=== PATIENT | female | born 1970 | race Caucasian/White ===

== ENCOUNTER 2020-12-12 13:31 | Inpatient (IN) | payer SELFPAY ==
[~2020-12-12] VITALS: Ht 152.4 cm; Wt 63.9 kg
[2020-12-12 14:10] LABS: ALBUMIN 3.3 gm/dL (3.5-5.0); BILIRUBIN,TOTAL 0.5 mg/dL (0.0-1.0); CREATININE, serum 4.59 (0.52-1.25); POTASSIUM 3.5 mmol/L (3.4-5.0)
[2020-12-12 14:13] LABS: BASO % 0.3 % (0.0-2.0); EOS % 0.1 % (0-4.0); GRAN # 7.8 (1.4-6.5); GRAN % 86.9 % (42.2-75.2); LYMPH # 0.6 (1.2-3.4); LYMPH % 6.9 % (20.0-51.0); MEAN CELL VOLUME 88 fl (80.0-100.0); MEAN CORPUSCULAR HEMOGLOBIN 32 pg (27.0-31.0); MEAN CORPUSCULAR HGB CONC 36 g/dl (33.0-37.0); MEAN PLATELET VOLUME 9.4 fl (7.4-10.4); MONO # 0.5 (0.1-0.6); MONO % 5.1 % (1.7-9.3); PLATELET COUNT 265 K/mm3 (130-400); RED BLOOD COUNT 3.17 M/mm3 (4.10-5.30); REDCELL DISTRIBUTION WIDTH-CV 12.1 % (11.5-14.5)
[2020-12-12 14:18] LABS: COLLECTION METHOD CLEAN CATCH
[2020-12-12 14:28] LABS: CALCIUM 5.5 mg/dL (8.4-10.2); TROPONIN-I 0.052 ng/mL (0.000-0.035)
[2020-12-12 14:28] LABS: BUDDING YEAST Present /hpf; MUCOUS Present /lpf; PH 5 (5-8); URINE APPEARANCE Cloudy; URINE BACTERIA Rare /hpf; URINE BILIRUBIN Negative (NEGATIVE); URINE BLOOD 1+ (NEGATIVE); URINE COLOR Yellow; URINE GLUCOSE 1+ (NEGATIVE); URINE KETONE Negative (NEGATIVE); URINE LEUKOCYTE ESTERASE Trace (NEGATIVE); URINE NITRATE Negative (NEGATIVE); URINE PROTEIN(semi-quant) 2+ (NEGATIVE); URINE UROBILINOGEN Negative (NEGATIVE)
[2020-12-12 14:47] LABS: PHOSPHOROUS 5.9 mg/dL (2.5-4.5)
[2020-12-12 14:50] LABS: MAGNESIUM 0.7 mg/dL (1.6-2.3)
[2020-12-12 15:15] LABS: TSH w REFLEX 1.78 uIU/mL (0.465-4.680)
--- NOTE | 2020-12-12 16:45 | NUR ---
Pt arrived to medical unit room 310 from ED at this time. Report received from ZORAN Jaramillo. Oriented pt to room, admission assessments and med rec completed. notified of pt's arrival. Magnesium infusion completed and left FA IV saline locked. Denies other needs at this time. Continuing to monitor.
[2020-12-12] MEDS ORDERED: NEXIUM 20MG20 MG PO (16:52)
[2020-12-12 17:34] VITALS: BP 208/93; PULSE 79; TEMP 98.1
[2020-12-12 19:12] VITALS: BP 175/77; PULSE 82; TEMP 98
--- NOTE | 2020-12-12 20:00 | NUR ---
Assessment complete. Patient is awake, sitting in chair. 2+ edema is noted on bilateral upper and lower extremities; generalized edema is also noted. She is alert and oriented with no complaints of pain. Lung sounds are diminished in bases with fine crackles. Heart sounds normal/regular. She noices concern of her condition and seems unsure of dialysis; Dr. Salas has been in to see patient. Tele monitor on, call light in reach. Will continue to monitor.
[2020-12-12 21:11] LABS: IRON,SERUM 59 ug/dL (35-150)
[2020-12-12 21:20] LABS: TOTAL IRON BINDING CAPACITY 208 ug/dL (265-497)
[2020-12-12 23:26] VITALS: BP 128/73; PULSE 93; TEMP 97.3
[2020-12-13] VITALS (11 sets, daily range): BP systolic 95–176; BP diastolic 44–81; PULSE 49–67; TEMP 97.4–98.1
[2020-12-13 06:42] LABS: BASO % 0.4 % (0.0-2.0); EOS % 0.6 % (0-4.0); GRAN # 4.3 (1.4-6.5); LYMPH # 0.4 (1.2-3.4); LYMPH % 8.2 % (20.0-51.0); MEAN CELL VOLUME 89 fl (80.0-100.0); MEAN CORPUSCULAR HGB CONC 35 g/dl (33.0-37.0); MEAN PLATELET VOLUME 9.5 fl (7.4-10.4); MONO # 0.4 (0.1-0.6); MONO % 7.2 % (1.7-9.3); PLATELET COUNT 197 K/mm3 (130-400); REDCELL DISTRIBUTION WIDTH-CV 12.2 % (11.5-14.5)
[2020-12-13 06:45] LABS: HEMOGLOBIN 8.5 g/dl (12.5-16.0); MEAN CORPUSCULAR HEMOGLOBIN 31 pg (27.0-31.0)
[2020-12-13 06:56] LABS: ALBUMIN 2.5 gm/dL (3.5-5.0); CREATININE, serum 4.72 (0.52-1.25); PHOSPHOROUS 5.9 mg/dL (2.5-4.5); POTASSIUM 3.5 mmol/L (3.4-5.0)
[2020-12-13 06:58] LABS: CALCIUM 5.4 mg/dL (8.4-10.2)
--- NOTE | 2020-12-13 09:53 | NUR ---
Assessment complete. Patient sitting up in recliner eating breakfast at this time. No complaints of pain or discomfort were expressed at this time. PAtient ambulated to the restroom via standby assist and did well. She is aware to call prior to getting up or moving around the room, she agreed. Patient chewed some of her pills, consciously by choice, I assured she did not chew metoprolol. No other needs were expressed from the patient at this time. Call light is in reach.
--- NOTE | 2020-12-13 11:56 | NUR ---
First visit from the director of construction. Patient was sleeping so director of construction prayed for patient outside of their door.
--- NOTE | 2020-12-13 18:21 | NUR ---
Patient has had a good day. no complaints of pain or discomfort were expressed throguh the day. Patient has spent most of the day in the recliner with no issues. PRN blood pressure medication given as needed. Patient has been calling appropriately to use the restroom and to ambulate in room. Continuing to monitor. Call light is in reach.
--- NOTE | 2020-12-13 20:00 | NUR ---
Assessment complete. Patient is alert and oriented with no tremors. She has no complaints of pain. Edema is present in bilat upper and lower extremities; 2+ pitting in lower extremities and 2+ pitting in left arm/hand, which is significantly more edematous that the right. A large bump in noted on the patient's left back; it is about the size of an entire lung. PARRIS Tidwell is notified and comes to assess patient. Patient is in no acute distress and has no complaints of breathing issues; Lung sounds are audible. Patient does state this mass/bump was not there previously and may have occurred after her VQ Scan. She states it is tender at times, moreso if she lays on it. Bed alarm on and call light in reach. Will continue to monitor.
--- NOTE | 2020-12-13 23:25 | NUR ---
Patient's BP 99/44 and HR 49 at this time. Patient is resting in bed. PARRIS Tidwell notified and comes to assess patient. Patient has been receiving new blood pressure medications. Will continue to closely monitor.
[2020-12-14] VITALS (11 sets, daily range): BP systolic 128–172; BP diastolic 55–74; PULSE 52–92; TEMP 97.2–98.3
[2020-12-14 07:32] LABS: BASO % 0.2 % (0.0-2.0); EOS % 0.4 % (0-4.0); GRAN # 4.3 (1.4-6.5); GRAN % 84.6 % (42.2-75.2); LYMPH # 0.4 (1.2-3.4); LYMPH % 7.7 % (20.0-51.0); MEAN CELL VOLUME 90 fl (80.0-100.0); MEAN CORPUSCULAR HGB CONC 34 g/dl (33.0-37.0); MEAN PLATELET VOLUME 9.8 fl (7.4-10.4); MONO # 0.3 (0.1-0.6); MONO % 6.5 % (1.7-9.3); PLATELET COUNT 202 K/mm3 (130-400); RED BLOOD COUNT 2.77 M/mm3 (4.10-5.30); REDCELL DISTRIBUTION WIDTH-CV 12.2 % (11.5-14.5)
[2020-12-14 07:38] LABS: ALBUMIN 2.6 gm/dL (3.5-5.0); CREATININE, serum 4.84 (0.52-1.25); MAGNESIUM 1.4 mg/dL (1.6-2.3); PHOSPHOROUS 5.8 mg/dL (2.5-4.5); POTASSIUM 3.5 mmol/L (3.4-5.0)
[2020-12-14 07:40] LABS: HEMATOCRIT 24.9 % (37.0-47.0); HEMOGLOBIN 8.4 g/dl (12.5-16.0); MEAN CORPUSCULAR HEMOGLOBIN 30 pg (27.0-31.0)
--- NOTE | 2020-12-14 09:23 | NUR ---
Assessment complete. Patient ulysses kirby in recliner eating breakfast at this time. She is aware of her POC after speaking with KENNETH Singh. No complaints of pain or discomfort were expressed. Patient is eager to go home. IV site remains CD&I, minimal leakage but flushes just fine. Patient continues to call for assistance to and from restroom appropriately. Continuing to monitor. Call light is in reach.
--- NOTE | 2020-12-14 09:41 | NUR ---
Frit Mixer met with patient to discuss discharge planning. 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 Patient does not have a primary care physician and declines to have one established for her. Patient obtains any needed medications from [facility] in [place] and does not use any DME. Patient is independent with ADLS and plans to return home upon discharge. Patient does not have Advance Directives and reports that her next of kin is her brother, Kei (ph#[phone]). Patient is not interested in establishing [facility]- at this time. SW addressed patient's alcohol use, which is reported to be about six beers per day. Patient feels this has been blown out of proportion but does state that she was drinking too much. Patient plans to cut back on drinking. SW offered resources to patient such as AA, but patient declines. Patient states she has friends in AA that can assist her as needed.
--- NOTE | 2020-12-14 16:02 | NUR ---
Patient has had a good day. She has spent most of the day in the recliner with no issues. Patient has had no complaints of pain and was excited to see a decrease in her swelling to her left hand. Her brother was in to visit with her for a while. PRN hydralazine was given as needed. PAtient continues to only score 1-2 on CIWA scale. Continuing to monitor. Call light is in reach.
--- NOTE | 2020-12-14 21:25 | NUR ---
Assessed at this time. Alert and oriented, and able to make needs known. Denies having pain and discomfort at this time. Peripheral INT to left AC. Site flushed and is wihtout redness, warmth, swelling, and pain. Denies having SOB and dyspnea. LS CTA. Repirations even and unlabored. HRR. Telemetry in place. Capillary refill less than 3 seconds. Non-tenting skin turgor. BSAx4. Abdomen soft and non-tender. Edema to left hand continues. Denies having any questions, needs, or concerns at this time. Resting in bed with call light within reach.
[2020-12-15] VITALS (7 sets, daily range): BP systolic 136–168; BP diastolic 63–76; PULSE 56–65; TEMP 97.3–98.9
--- NOTE | 2020-12-15 05:45 | NUR ---
Patient had been resting in bed with eyes closed most of shift. Moved to recliner as requested this morning. Continues on alcohol detox protocol, scoring 0-2 this shift. Voices no questions, needs, or concerns at this time. Call light is within reach.
[2020-12-15 06:34] LABS: BASO % 0.5 % (0.0-2.0); EOS % 0.8 % (0-4.0); GRAN # 2.9 (1.4-6.5); GRAN % 75.5 % (42.2-75.2); LYMPH # 0.5 (1.2-3.4); LYMPH % 13.3 % (20.0-51.0); MEAN CELL VOLUME 90 fl (80.0-100.0); MEAN CORPUSCULAR HGB CONC 35 g/dl (33.0-37.0); MONO # 0.4 (0.1-0.6); MONO % 9.1 % (1.7-9.3); PLATELET COUNT 183 K/mm3 (130-400); RED BLOOD COUNT 2.51 M/mm3 (4.10-5.30); REDCELL DISTRIBUTION WIDTH-CV 12.3 % (11.5-14.5)
[2020-12-15 06:35] LABS: HEMATOCRIT 22.7 % (37.0-47.0); HEMOGLOBIN 7.9 g/dl (12.5-16.0); MEAN CORPUSCULAR HEMOGLOBIN 31 pg (27.0-31.0)
[2020-12-15 06:48] LABS: ALBUMIN 2.6 gm/dL (3.5-5.0); CALCIUM 6.4 mg/dL (8.4-10.2); CREATININE, serum 4.69 (0.52-1.25); PHOSPHOROUS 5.6 mg/dL (2.5-4.5); POTASSIUM 3.9 mmol/L (3.4-5.0)
--- NOTE | 2020-12-15 08:54 | NUR ---
Assessment completed, alert/oriented, vital signs stable, reports pain is controlled, reports feeling better overall this morning, mild improvements in chemistry, hemaglobin at 7.9, 2-3+ edema to BLE but she reports overall improvement in the swelling, Lasix being given and accurate I/O's being done, heart RRR/distal pulses are palpable, lungs CTA/ no reps.difficulty noted, she is sitting up eating breakfast and dneies other needs
[2020-12-15] MEDS ORDERED: CATAPRES 0.1MG0.1 MG PO (15:56)
[2020-12-15] MEDS ORDERED: LOPRESSOR 225 MG/TAB PO (15:57)
[2020-12-15] MEDS ORDERED: LASIX 20MG TABL20 MG PO (15:58)
--- NOTE | 2020-12-15 16:58 | NUR ---
discharge orders discussed with patient, instructed to follow up with as scheduled with ordered labs drawn prior to appointment, instructed to take meds as prescribed/scripts sent to pharmacy for her, instructed on fluid restriction of 1500cc/day, IV and tele removed, leaving with her brother, I escorted her out the door by wheelchair
== END 2020-12-15 17:00 | disposition home or self-care (01) | DRG 683 ==
LOC: COL.ER 13:31 → MEDICAL 14:38 → COL.ER 15:49 → MEDICAL 23:00
PROVIDERS: Emergency Medicine; ADMIT Internal Medicine Nephrology
DX: N17.9 Acute kidney failure, unspecified (principal); I16.1 Hypertensive emergency; E87.1 Hypo-osmolality and hyponatremia; F17.210 Nicotine dependence, cigarettes, uncomplicated; Z20.822 Contact with and (suspected) exposure to COVID-19; F10.10 Alcohol abuse, uncomplicated; E83.42 Hypomagnesemia; M25.532 Pain in left wrist; M25.561 Pain in right knee; D63.1 Anemia in chronic kidney disease; N18.9 Chronic kidney disease, unspecified; R60.1 Generalized edema
CPT/HCPCS: 99222; 99232-AI; A9540; A9567; J3475

== ENCOUNTER 2021-04-24 19:20 | Inpatient (IN) | payer OTHER ==
[~2021-04-24] VITALS: Ht 152.4 cm; Wt 59.8 kg
[~2021-04-24 19:20] MED LIST: CATAPRES 0.1MG0.1 MG PO; LASIX 20MG TABL20 MG PO; LOPRESSOR 225 MG/TAB PO; NEXIUM 20MG20 MG PO
--- NOTE | 2021-04-24 23:19 | NUR ---
Patient is transfer from [facility] via EMS came around 2300 complaining of nausea. She came up hooked with Blood transfusion RBCat 150 ml/hr. She is soaked with bowel and urine. She have necrotic butt down to her leg. Her perineal area is red and weeping and necrotic between her legs. Her lower extremities are tight and very dry. She have plus 2 to 3 edema in her lower extremities from upper legs to lower legs. She asked for nausea meds but she is not on the system. RN called Dr Rodriguez and initiate all his order. She will be NPO after midnight for possible surgery. Continue to monitor.
[2021-04-24 23:47] VITALS: BP 156/58; PULSE 86; TEMP 98.7
--- NOTE | 2021-04-24 23:51 | NUR ---
Blood transfusion done at 2345.
[2021-04-25 04:43] VITALS: BP 152/59; PULSE 83; TEMP 98.5
[2021-04-25 06:38] LABS: BASO % 0.1 % (0.0-2.0); EOS # 0.1 (0.0-0.7); EOS % 0.7 % (0-4.0); GRAN # 5.9 (1.4-6.5); GRAN % 85.5 % (42.2-75.2); LYMPH # 0.3 (1.2-3.4); LYMPH % 3.6 % (20.0-51.0); MEAN CELL VOLUME 85 fl (80.0-100.0); MEAN CORPUSCULAR HGB CONC 32 g/dl (33.0-37.0); MEAN PLATELET VOLUME 9.2 fl (7.4-10.4); MONO # 0.7 (0.1-0.6); MONO % 9.7 % (1.7-9.3); PLATELET COUNT 307 K/mm3 (130-400); RED BLOOD COUNT 3.06 M/mm3 (4.10-5.30); REDCELL DISTRIBUTION WIDTH-CV 17.2 % (11.5-14.5)
[2021-04-25 06:46] LABS: HEMOGLOBIN 8.3 g/dl (12.5-16.0); MEAN CORPUSCULAR HEMOGLOBIN 27 pg (27.0-31.0)
[2021-04-25 06:49] LABS: ALBUMIN 2.1 gm/dL (3.5-5.0); BILIRUBIN,TOTAL 0.2 mg/dL (0.0-1.0); CALCIUM 6.7 mg/dL (8.4-10.2); CREATININE, serum 6.02 (0.52-1.25); POTASSIUM 5.1 mmol/L (3.4-5.0); TOTAL PROTEIN 4.4 gm/dL (6.4-8.2)
[2021-04-25 06:56] LABS: INR 1.1 (0.8-3.0); PROTHROMBIN TIME 11.7 SECONDS (9.7-12.8)
[2021-04-25 06:59] LABS: PARTIAL THROMBOPLASTIN TIME 27.8 SECONDS (26.0-37.0)
[2021-04-25 11:02] LABS: COLLECTION METHOD CATHETER
[2021-04-25 11:25] VITALS: BP 148/56; PULSE 78; TEMP 98.6
--- NOTE | 2021-04-25 11:30 | NUR ---
Assessment completed, alert/oriented, vital signs stable, denies pain at rest, sacral/coccygeal/perinal areas are extrmely excoriated with extensive breadown and multiple wounds with escar tissue noted, surgical consult made for wounnd care, epstein catheter place and sample sent to lab, large aount of urine out upon cath placmeent/ aware, heart RRR/ distal pulses are palpable, lung CTA/no resp.difficulty noted, holding off on HD cath placement at this time given large amount of urine output/ will give IVF and monitor labs closely, patient is only interested in food at this point and we have assisted with diet order
[2021-04-25 12:07] LABS: BUDDING YEAST Present /hpf; MUCOUS Present /lpf; PH 5 (5-8); SQUAMOUS EPITHELIAL None Seen /hpf; URINE APPEARANCE Hazy; URINE BACTERIA None Seen /hpf; URINE BILIRUBIN Negative (NEGATIVE); URINE BLOOD 1+ (NEGATIVE); URINE COLOR Yellow; URINE GLUCOSE 1+ (NEGATIVE); URINE KETONE Negative (NEGATIVE); URINE LEUKOCYTE ESTERASE Negative (NEGATIVE); URINE NITRATE Negative (NEGATIVE); URINE PROTEIN(semi-quant) 2+ (NEGATIVE); URINE RBC None Seen /hpf; URINE UROBILINOGEN Negative (NEGATIVE)
[2021-04-25 16:00] VITALS: BP 127/46; PULSE 85; TEMP 98.5
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
[2021-04-25 16:29] LABS: CALCIUM 6.3 mg/dL (8.4-10.2); CREATININE, serum 5.92 (0.52-1.25); POTASSIUM 4.8 mmol/L (3.4-5.0)
[2021-04-25 20:31] VITALS: BP 163/64; PULSE 86; TEMP 99.3
[2021-04-25 22:10] VITALS: BP 149/60; PULSE 86; TEMP 99.1
[2021-04-26] VITALS (8 sets, daily range): BP systolic 148–179; BP diastolic 55–75; PULSE 60–97; TEMP 69–98.6
--- NOTE | 2021-04-26 06:23 | NUR ---
PT REMAINS AFEBRILE OVERNIGHT, PLACED 02 NC OVERNIGHT SATURATIION DROPPED TO 89 PERCENT.02 CURRENTLY 1L SATURATING 95 PERCENT. PT REPORTS PAIN TO BACK, PERINEAL AREA AND LOWER EXTREMEITIES 5/10. PT OUTPUT RECORDED. NO DRESSINGS PLACED ON PT OVERNIGHT. PT REFUSED TO CLEAN AND WRAP WOUNDS.PT IS CURRENTLY NOT SCORING ON CIWA.PT REMAINS A/OX4 AND MOTIVATED TO EAT. PT DENIES PAIN,N,V,D, CONSTIPATION. PT EXPRESSES NO ADDITIONAL NEEDS AT THIS TIME. CALL LIGHT WITHIN REACH.
[2021-04-26 07:06] LABS: BASO % 0.3 % (0.0-2.0); EOS # 0.1 (0.0-0.7); EOS % 1.3 % (0-4.0); GRAN # 8.1 (1.4-6.5); GRAN % 88.2 % (42.2-75.2); LYMPH # 0.3 (1.2-3.4); LYMPH % 3.1 % (20.0-51.0); MEAN CELL VOLUME 86 fl (80.0-100.0); MEAN CORPUSCULAR HGB CONC 32 g/dl (33.0-37.0); MEAN PLATELET VOLUME 9.3 fl (7.4-10.4); MONO # 0.6 (0.1-0.6); MONO % 6.4 % (1.7-9.3); PLATELET COUNT 315 K/mm3 (130-400); RED BLOOD COUNT 2.97 M/mm3 (4.10-5.30); REDCELL DISTRIBUTION WIDTH-CV 17.5 % (11.5-14.5)
[2021-04-26 07:27] LABS: ALBUMIN 2.2 gm/dL (3.5-5.0); BILIRUBIN,TOTAL 0.2 mg/dL (0.0-1.0); CALCIUM 6.1 mg/dL (8.4-10.2); CREATININE, serum 5.64 (0.52-1.25); TOTAL PROTEIN 4.5 gm/dL (6.4-8.2)
[2021-04-26 07:29] LABS: HEMATOCRIT 25.5 % (37.0-47.0); HEMOGLOBIN 8.1 g/dl (12.5-16.0); MEAN CORPUSCULAR HEMOGLOBIN 27 pg (27.0-31.0)
--- NOTE | 2021-04-26 09:05 | NUR ---
APS worker, Jadyn Abdi (ph#[phone]), emailed this SW. Jadyn reports that the patient's case was screened in and assigned to her. SW updated Jadyn on the patient's current status and plan.
--- NOTE | 2021-04-26 11:46 | NUR ---
Dr. Salas notified HEATHER that the patient's brother, Kei, is here. HEATHER met with the patient and Kei to follow up and review d/c plan. Kei reports that him and the patient were able to talk and the plan is for the patient to come stay with him and his girlfriend upon discharge. HEATHER inquired about a DPOA-HC. The patient was interested in completing a DPOA-HC while here. HEATHER presented the form. The patient verbalized that she wants to designate her brother, Kei. She did not want to designate an alternate. HEATHER and RETORT FEEDER GROUND BONERhonda Espinoza, witnessed the patient's signature. HEATHER provided the patient with the original and some copies. HEATHER placed a copy in the patient's chart. HEATHER then contacted Diann, financial counselor, to follow up on the status of the patient's Medicaid application. Diann reports that the patient was denied on 01/16, due to non-compliance for not providing needed documents and information. Diann reports that the patient will have to reapply and that she will be reaching out to the patient and her brother to complete the application again. HEATHER updated the patient's brother, Kei. General surgery has been consulted for the patient's wounds. HEATHER to continue to follow. *Discharge plan: Will stay with brother and brother's girlfriend*
[2021-04-27 04:00] VITALS: BP 187/85; PULSE 95; TEMP 97.8
--- NOTE | 2021-04-27 05:59 | NUR ---
PT CONTINUES TO C/O PAIN TO SUBSTERNAL CHEST WITH NO CURRENT RADIATION, PT RATES PAIN 5/10. ALL MEDICATION ADMINISTERED ORDERED. 1/2 NS INFUSING AT 200ML/HR TO RIGHT AC IV. VSS. NURSE WILL CONTINUE TO MONITOR. CALL LIGHT WITHIN REACH.
--- NOTE | 2021-04-27 06:03 | NUR ---
THIS SHIFT PT WAS REPOSITIONED Q2, PT WAS PROVIDED THOROUGH WOUND CARE PER ORDER, PT'S BLE ARE BOTH WRAPPED WITH GAUZE AND MILD SEEPAGE NOTED. PT'S BLOOD PRESSURE ELEVATED, HYDRALAZINE ADMINISTERED ORDERED. PT ASYMPTOMATIC. PT CURRENTLY EXPRESSES MILD PAIN TO BACK AND LOWER EXTREMITIES. NURSE WILL CONTINUE TO MONITOR. CALLL LIGHT WITHIN REACH.
[2021-04-27 06:33] VITALS: BP 163/62; PULSE 96
[2021-04-27 07:06] LABS: MEAN CELL VOLUME 86 fl (80.0-100.0); MEAN CORPUSCULAR HGB CONC 32 g/dl (33.0-37.0); MEAN PLATELET VOLUME 9.2 fl (7.4-10.4); PLATELET COUNT 324 K/mm3 (130-400); REDCELL DISTRIBUTION WIDTH-CV 17.5 % (11.5-14.5)
[2021-04-27 07:09] LABS: HEMATOCRIT 26.6 % (37.0-47.0); HEMOGLOBIN 8.5 g/dl (12.5-16.0); MEAN CORPUSCULAR HEMOGLOBIN 27 pg (27.0-31.0)
[2021-04-27 07:18] LABS: ALANINE AMINOTRANSFERASE 14 U/L (4-34); ALBUMIN 2.4 gm/dL (3.5-5.0); ALKALINE PHOSPHATASE 157 U/L (50-136); ANION GAP 10 mmol/L (7-16); AST,SGOT 23 U/L (15-37); BILIRUBIN,TOTAL < 0.1 mg/dL (0.0-1.0); CARBON DIOXIDE 15 mmol/L (22-30); CHLORIDE 103 mmol/L (98-107); CREATININE, serum 5.98 (0.52-1.25); GLUCOSE 126 mg/dL (74-106); POTASSIUM 5.1 mmol/L (3.4-5.0); SODIUM 128 mmol/L (137-145); TOTAL PROTEIN 4.8 gm/dL (6.4-8.2)
[2021-04-27 07:25] LABS: BLOOD UREA NITROGEN 141 mg/dL (7-17)
[2021-04-27 07:54] LABS: ANISOCYTOSIS 1+; EOSINOPHIL 2 % (0-4); LYMPHOCYTE 3 % (20.0-51.0); NEUTROPHILS 88 % (42.0-75.2); PLATELET ESTIMATE NORMAL (NORMAL)
[2021-04-27 08:21] VITALS: BP 174/68; PULSE 86; TEMP 97.9
[2021-04-27 11:59] VITALS: BP 176/64; PULSE 95; TEMP 98.3
--- NOTE | 2021-04-27 12:03 | NUR ---
PT RESTING IN BED. NS RUNNING THROUGH IV. MORNING MEDICATIONS GIVEN. PT DENIES ANY PAIN OTHER THAN A MILD HEADACHE. PT REPOSITIONED IN BED. DRESSINGS TO PT SACRAL AREA CHANGED, X7 PRESSURE INJURIES NOTED TO AREA. SOME RAW, OPEN, BLEEDING AREAS NOTED. AREA CLEANED WITH SOAP AND WARM WATER, CREAM APPLIED, AND COVERED WITH GAUZE PADS. EXCORIATED AREAS COVER WHOLE BOTTOM AREA DOWN TO POSTERIOR THIGHS. CALL LIGHT WITHIN REACH. WILL CONTINUE TO MONITOR.
--- NOTE | 2021-04-27 12:33 | NUR ---
DRESSING TO BLE CHANGED. EXCORIATION NOTED TO BOTH CALVES. MILD DRAINAGE ON BOTH DRESSING WHEN REMOVED. AREA IS NOT RED OR SWOLLEN. NEW DRESSINGS APPLIED AND WRAPPED IN DEMETRIA WRAPS. WILL CONTINUE TO MONITOR.
--- NOTE | 2021-04-27 15:23 | NUR ---
HEATHER received a phone call from the patient's niece, Florecita (ph#[phone]). Florecita lives in [place]. She expressed her concerns with the patient not taking care of herself and inquired about the patient being deemed not competent to make her own decisions. SW informed her about the patient has been able to make her own decisions, but would inform the patient's attending. HEATHER updated Dr. Salas. Dr. Salas confirms that the patient is competent and able to make her own decisions. He states that he discussed hospice with the patient and brother yesterday. He inquired if she would be eligible for Medicare. HEATHER followed up with financial counselor, Diann. Diann reports that they do not check eligibility for Medicare and cannot complete applications for that. She states that she is reaching out to the patient and brother today for the Medicaid application. HEATHER then received a phone call from the patient's brother, Kei. HEATHER updated him on the above. Kei reports that they are not considering hospice at this time. He states that they are applying for SSI, but need a note from the doctor, stating that the patient cannot work and cannot go back to work. He also inquired intermediate placement. HEATHER informed him how that is an option, but that it would be private pay. Kei verbalized understanding. HEATHER received a phone call from Lida, social sciences instructor, at [facility]. HEATHER updated her on the above. Lida states that she will also reach out the patient's brother, Kei.
[2021-04-27 15:27] VITALS: BP 184/77; PULSE 84; TEMP 97.5
[2021-04-27 19:51] VITALS: BP 180/72; PULSE 90; TEMP 97.7
[2021-04-28] VITALS (7 sets, daily range): BP systolic 142–167; BP diastolic 60–78; PULSE 61–81; TEMP 97.4–98.6
--- NOTE | 2021-04-28 04:30 | NUR ---
PT REPOSITIONED Q2, THIS NURSE PROVIDED THOROUGH WOUND CARE PER PROVIDERS ORDER, ALL MEDICATIONS ADMINISTERED ORDERED. PT CURRENTLY ON ROOM AIR AND DENIES N,V,D. PT EXPRESSES NO ADDITIONAL NEEDS AT THIS TIME. CALL LIGHT WITHIN REACH.
[2021-04-28 06:33] LABS: MEAN CORPUSCULAR HGB CONC 30 g/dl (33.0-37.0); MEAN PLATELET VOLUME 9.2 fl (7.4-10.4); PLATELET COUNT 284 K/mm3 (130-400); RED BLOOD COUNT 3.09 M/mm3 (4.10-5.30); REDCELL DISTRIBUTION WIDTH-CV 17.9 % (11.5-14.5)
[2021-04-28 06:43] LABS: ALANINE AMINOTRANSFERASE 16 U/L (4-34); ALBUMIN 2.4 gm/dL (3.5-5.0); ALKALINE PHOSPHATASE 141 U/L (50-136); ANION GAP 11 mmol/L (7-16); AST,SGOT 22 U/L (15-37); BILIRUBIN,TOTAL < 0.1 mg/dL (0.0-1.0); CALCIUM 7.2 mg/dL (8.4-10.2); CHLORIDE 104 mmol/L (98-107); GLUCOSE 157 mg/dL (74-106); PHOSPHOROUS 6.6 mg/dL (2.5-4.5); POTASSIUM 4.9 mmol/L (3.4-5.0); SODIUM 129 mmol/L (137-145); TOTAL PROTEIN 4.9 gm/dL (6.4-8.2)
[2021-04-28 06:48] LABS: HEMOGLOBIN 8.4 g/dl (12.5-16.0); MEAN CELL VOLUME 91 fl (80.0-100.0); MEAN CORPUSCULAR HEMOGLOBIN 27 pg (27.0-31.0)
[2021-04-28 06:51] LABS: BLOOD UREA NITROGEN 148 mg/dL (7-17)
[2021-04-28 06:54] LABS: CARBON DIOXIDE 14 mmol/L (22-30)
[2021-04-28 07:22] LABS: BAND 6 % (0-10); LYMPHOCYTE 4 % (20.0-51.0); METAMYELOCYTE 2 % (0-0); NEUTROPHILS 86 % (42.0-75.2); PLATELET ESTIMATE NORMAL (NORMAL)
[2021-04-28 07:23] LABS: OVALOCYTES 1+; SCHISTOCYTES 2+
--- NOTE | 2021-04-28 11:15 | NUR ---
First visit from the drill press operator numerical control. No needs right now.
--- NOTE | 2021-04-28 21:45 | NUR ---
Initial shift assessment done- has been resting, awake--would like a snack at this time-- yogurt and pudding given. Tele on,Shell to DD with clear yellow urine. Has numerous wounds to sacral, buttocks, back of thighs- pt was incontinent of stool,,states she did know she had stool but didnt call and let anyone know--- cleaned up whole area, painful with all the various open areas, some with eschar covering--did culture wounds in 2 areas on sacrum, antibiotic cream applied all over-- covered with plain ABD,,Dr. Salas was here to see patient
[2021-04-29 03:48] VITALS: BP 158/64; PULSE 84; TEMP 98.5
--- NOTE | 2021-04-29 06:10 | NUR ---
Did not sleep much- quiet in bed- watching some TV,, ate a couple puddings, repositioned every couple hours- no more stools during the night. VSS
--- NOTE | 2021-04-29 07:14 | NUR ---
PT LAYING IN BED, STATES SHE IS FEELING WARM. DENIES ANY NEEDS AT THIS TIME.
[2021-04-29 08:31] LABS: MEAN CELL VOLUME 87 fl (80.0-100.0); MEAN CORPUSCULAR HGB CONC 31 g/dl (33.0-37.0); MEAN PLATELET VOLUME 9.3 fl (7.4-10.4); PLATELET COUNT 291 K/mm3 (130-400); RED BLOOD COUNT 2.81 M/mm3 (4.10-5.30); REDCELL DISTRIBUTION WIDTH-CV 17.7 % (11.5-14.5)
[2021-04-29 08:43] LABS: HEMATOCRIT 24.3 % (37.0-47.0); HEMOGLOBIN 7.5 g/dl (12.5-16.0); MEAN CORPUSCULAR HEMOGLOBIN 27 pg (27.0-31.0)
[2021-04-29 08:47] LABS: ALANINE AMINOTRANSFERASE 17 U/L (4-34); ALBUMIN 2.3 gm/dL (3.5-5.0); ALKALINE PHOSPHATASE 113 U/L (50-136); ANION GAP 9 mmol/L (7-16); AST,SGOT 25 U/L (15-37); BILIRUBIN,TOTAL < 0.1 mg/dL (0.0-1.0); CALCIUM 7.3 mg/dL (8.4-10.2); CARBON DIOXIDE 17 mmol/L (22-30); CHLORIDE 102 mmol/L (98-107); CREATININE, serum 6.13 (0.52-1.25); GLUCOSE 82 mg/dL (74-106); POTASSIUM 5.2 mmol/L (3.4-5.0); SODIUM 128 mmol/L (137-145); TOTAL PROTEIN 4.9 gm/dL (6.4-8.2)
[2021-04-29 08:54] LABS: BLOOD UREA NITROGEN 155 mg/dL (7-17)
[2021-04-29 09:00] VITALS: BP 159/67; PULSE 67; TEMP 98.2
[2021-04-29 09:56] LABS: ANISOCYTOSIS 1+; HYPOCHROMIA 3+; LYMPHOCYTE 5 % (20.0-51.0); NEUTROPHILS 94 % (42.0-75.2); PLATELET ESTIMATE NORMAL (NORMAL)
[2021-04-29 12:00] VITALS: BP 153/64; PULSE 71; TEMP 97.6
[2021-04-29 17:00] VITALS: BP 150/71; PULSE 73; TEMP 98.1
[2021-04-29 19:30] VITALS: BP 149/69; PULSE 77; TEMP 97.9
--- NOTE | 2021-04-29 21:30 | NUR ---
Initial shift assessment done- has been resting quietly- o2 at 1L/nc, Repositioned with assistance- wounds cleaned on coccyx-pt did have some smear of stool, antibiotic ontiment applied- covered with ABD, pt denies pain when at rest-- Shell with geoffrey urine. VSS, No requests at this time.
[2021-04-29 23:52] VITALS: BP 150/63; PULSE 74; TEMP 97.9
[2021-04-30 02:52] VITALS: BP 147/60; PULSE 59; TEMP 98.1
--- NOTE | 2021-04-30 06:40 | NUR ---
No changes- quiet night. VSS. Did eat 2 pieces of toast/peanut butter during the night
--- NOTE | 2021-04-30 07:30 | NUR ---
PT LAYING IN BED, AWAKE WILL ORDER BREAKFAST.
[2021-04-30 08:54] VITALS: BP 164/62; PULSE 71; TEMP 98
[2021-04-30 10:11] LABS: MEAN CELL VOLUME 86 fl (80.0-100.0); MEAN CORPUSCULAR HGB CONC 31 g/dl (33.0-37.0); MEAN PLATELET VOLUME 9.2 fl (7.4-10.4); PLATELET COUNT 267 K/mm3 (130-400); RED BLOOD COUNT 2.87 M/mm3 (4.10-5.30); REDCELL DISTRIBUTION WIDTH-CV 17.8 % (11.5-14.5)
[2021-04-30 10:12] LABS: HEMATOCRIT 24.8 % (37.0-47.0); HEMOGLOBIN 7.7 g/dl (12.5-16.0); MEAN CORPUSCULAR HEMOGLOBIN 27 pg (27.0-31.0)
[2021-04-30 11:40] LABS: EOSINOPHIL 1 % (0-4); HYPOCHROMIA 3+; LYMPHOCYTE 5 % (20.0-51.0); METAMYELOCYTE 1 % (0-0); NEUTROPHILS 92 % (42.0-75.2); PLATELET ESTIMATE NORMAL (NORMAL)
[2021-04-30 11:41] LABS: ANISOCYTOSIS 1+; OVALOCYTES 1+
--- NOTE | 2021-04-30 11:51 | NUR ---
ATTEMPTED TO HELP PHYSICAL THERAPY GET THE PT OUT OF BED AND INTO THE CHAIR. HOWEVER, THE PATIENT REFUSED TO GET OUT OF BED STATING THAT HER RIGHT GREAT TOE HURTS TOO MUCH TO STAND ON IT. NO OTHER PAIN ANYWHERE ELSE PER THE PATIENT.
[2021-04-30 13:15] VITALS: BP 145/60; PULSE 70; TEMP 98
[2021-04-30 15:10] VITALS: BP 181/93; PULSE 65
[2021-04-30 19:48] VITALS: BP 178/67; PULSE 72; TEMP 98.4
--- NOTE | 2021-04-30 22:28 | NUR ---
PT RESTING IN BED. EVENING MEDICATIONS GIVEN. IV PATENT. DRESSING TO CALVES REMOVED AND REAPPLIED. DRAINAGE NOTED TO DRESSINGS BUT NO REDNESS OR SWELLING NOTED TO SITES. DRESSING TO BOTTOM CHANGED, OVERALL REDNESS AND EXCORIATION NOTED TO AREA WITH STAGE IV PRESSURE SORES X5, OINTMENT APPLIED TO AREAS AND CLEAN DRESSINGS APPLIED. REMINDED PT TO CALL NURSES IF INCONTINENT. OVERALL APPEARANCE OF SKIN IS RED, SWOLLEN, AND HARD. PT COMPLAINS OF PAIN ONLY WHEN CHANGING DRESSINGS. CALL LIGHT WITHIN REACH. WILL CONTINUE TO MONITOR.
[2021-05-01] VITALS (7 sets, daily range): BP systolic 148–176; BP diastolic 67–77; PULSE 65–84; TEMP 97–98.9
--- NOTE | 2021-05-01 06:08 | NUR ---
PT RESTING IN BED. MORNING MEDICATIONS GIVEN. PT STATED SHE DIDN'T GET MUCH SLEEP LAST NIGHT.
[2021-05-01 06:55] LABS: HEMATOCRIT 23.5 % (37.0-47.0); HEMOGLOBIN 7.3 g/dl (12.5-16.0); MEAN CELL VOLUME 86 fl (80.0-100.0); MEAN CORPUSCULAR HEMOGLOBIN 27 pg (27.0-31.0); MEAN CORPUSCULAR HGB CONC 31 g/dl (33.0-37.0); MEAN PLATELET VOLUME 9.9 fl (7.4-10.4); PLATELET COUNT 254 K/mm3 (130-400); RED BLOOD COUNT 2.73 M/mm3 (4.10-5.30); REDCELL DISTRIBUTION WIDTH-CV 17.6 % (11.5-14.5)
[2021-05-01 07:01] LABS: ALBUMIN 2.4 gm/dL (3.5-5.0); BILIRUBIN,TOTAL 0.1 mg/dL (0.0-1.0); CALCIUM 7.5 mg/dL (8.4-10.2); POTASSIUM 5.5 mmol/L (3.4-5.0); TOTAL PROTEIN 4.9 gm/dL (6.4-8.2)
[2021-05-01 07:07] LABS: CREATININE, serum 6.27 (0.52-1.25)
[2021-05-01 07:41] LABS: ANISOCYTOSIS 2+; EOSINOPHIL 5 % (0-4); HYPOCHROMIA 2+; LYMPHOCYTE 2 % (20.0-51.0); NEUTROPHILS 88 % (42.0-75.2); NUCLEATED RED BLOOD CELL 1 (0-6); PLATELET ESTIMATE NORMAL (NORMAL)
--- NOTE | 2021-05-01 15:26 | NUR ---
Afsaneh CHINCHILLA and I met with patient and her brother Kei at bedside. Kei reports that Alexus is telling him she is working with therapy but in reality that is not happening. He asked about the seriousness of her kidney failure and her wounds "bed sores". He reports that he cannot take her home with him if she cannot walk to the bathroom. He does report that she has medicaid now and brought a copy of the card--which health and social care teacher is validating. He is not sure where she should go for care but is clear that he cannot bring her home. He is hoping she will try to get better but is acknowledging that she is not doing what she needs to to help herself get better. Hospice care was introduced as comfort care if she chooses not to pursue dailysis and that this can be done in a facility. "That is not what we are wanting her to do--but may be what happens if she won't help herself." Afsaneh Luna Jennifer, and Suyapa Mckeon RN met with both pt and Kei this afternoon. Further discussion between Kei and Alexus is occuring now.
--- NOTE | 2021-05-01 16:33 | NUR ---
The patient's attending notified HEATHER that he would like a meeting with the patient and her brother to discuss her status and goals of care. A palliative care consult was ordered and Suyapa notified. The patient's brother, Kei, arrived to the hospital. HEATHER and palliative care RN, Suyapa, met with the patient and Kei. Suyapa discussed hospice care vs SNF. Kei is hoping that the patient will try and work with therapy and want to get better and go to dialysis. He reports that he cannot take the patient home and care for her in the state that she is. The patient stated that she would try. Kei reports that the patient was approved for an insurance on 04/30 and he provided HEATHER with a copy of the card. HEATHER scanned the card down to admissions. Admissions confirmed that the insurance plan is active. Dr. Salas then arrived to the hospital. Dr. Salas, this SW, palliative care nurse, and social workers Monae and Diann met with the patient and her brother again. The patient was sleeping. Dr. Salas updated Kei on the patient's status. Kei confirms that he is not ready for hospice yet and would like for the patient to try. He would like to try for chcf placement and he was open for HEATHER to send referrals. Referrals have been faxed to [facility], [facility], and [facility]. Awaiting screens.
--- NOTE | 2021-05-01 19:57 | NUR ---
Initial shift assessment done- drowsy, alert, oriented to person/place but not time- falls back to sleep after any interuption. Incontinent of stool- cleaned up, multiple wounds cleaned to coccyx and antibiotic ointment applied- ABD applied to cover-- wounds to buttocks/coccyx very red,open, has eschar covering - thighs posterior bright red with scaly skin- Shell with cloudy yellow urine. o2 at 2L/nc.
[2021-05-02] VITALS (38 sets, daily range): BP systolic 125–184; BP diastolic 55–84; PULSE 52–79; TEMP 98; O2SAT 76–100
--- NOTE | 2021-05-02 04:56 | NUR ---
Has been sleeping most of the night- repositioned every couple hours-incontinent of smear of stool, wounds cleaned,new ABD pad applied--denies need for pain meds, Has been NPO after MN for Dialysis catheter this morning
[2021-05-02 07:14] LABS: BASO % 0.5 % (0.0-2.0); EOS # 0.1 (0.0-0.7); EOS % 1.5 % (0-4.0); GRAN # 7.2 (1.4-6.5); GRAN % 85.3 % (42.2-75.2); LYMPH # 0.2 (1.2-3.4); LYMPH % 2.6 % (20.0-51.0); MEAN CELL VOLUME 86 fl (80.0-100.0); MEAN CORPUSCULAR HGB CONC 31 g/dl (33.0-37.0); MEAN PLATELET VOLUME 9.9 fl (7.4-10.4); MONO # 0.7 (0.1-0.6); MONO % 8.7 % (1.7-9.3); PLATELET COUNT 284 K/mm3 (130-400); REDCELL DISTRIBUTION WIDTH-CV 17.5 % (11.5-14.5)
[2021-05-02 07:17] LABS: HEMOGLOBIN 7.4 g/dl (12.5-16.0); MEAN CORPUSCULAR HEMOGLOBIN 26 pg (27.0-31.0)
[2021-05-02 07:24] LABS: ALBUMIN 2.5 gm/dL (3.5-5.0); BILIRUBIN,TOTAL 0.2 mg/dL (0.0-1.0); TOTAL PROTEIN 5.1 gm/dL (6.4-8.2)
[2021-05-02 07:28] LABS: POTASSIUM 5.8 mmol/L (3.4-5.0)
[2021-05-02 07:41] LABS: CALCIUM 7.4 mg/dL (8.4-10.2)
[2021-05-02 08:08] LABS: CREATININE, serum 5.93 (0.52-1.25)
--- NOTE | 2021-05-02 09:40 | NUR ---
Due to the patient's extensive wounds, HEATHER faxed a referral to Miguel at [facility].
--- NOTE | 2021-05-02 10:00 | NUR ---
Assessment completed, patient is drowsy but arousable, confused/disoriented, vital signs stable, her brother Kei has given phone consent for HD cath placement today, patients sacral/coccygeal and thor area wounds and skin are improving slowly, we are continuing to change positiong frequently to off-load pressure as well as doing frequent incontinent care and wound cleaning to help skin heal, heart RRR, lungs CTA/diminsihed, I have dsicussed plan of care with Nephrology, will jasmeetue to monitor patient
--- NOTE | 2021-05-02 14:20 | NUR ---
Patient is going down to collaborative physician at this time for HD cath placement
--- NOTE | 2021-05-02 14:59 | NUR ---
Miguel, at [facility], reports that they patient does look like she qualifies and has provided the patient's information to their [place] location. He reports that they will submit for auth. HEATHER attempted to contact and update the patient's brother, Kei. Kei did not answer and his voicemail was full. HEATHER was unable to leave a message.
--- NOTE | 2021-05-02 16:00 | NUR ---
patient did not tolerated HD catheter placement, they have decided to terminate the case and place it tommorow under anasthesia instead, is aware
--- NOTE | 2021-05-02 16:05 | NUR ---
Patient was given Fentanyl in label fuser tender, she is more drowsy but vital signs stable
--- NOTE | 2021-05-02 23:47 | NUR ---
Assessment done at 1900. Patient is drowsy but able to talk. She was able to swallow her pills one a time. At 2200 RN got a call from TELE that her heart rate was in 30's and back up to 100's. EKG stat was ordered and when RN checked patient breath labored and looks so pale. VS taken and her saturation was in the 45's. Charged is at the bedside and called Diann and Govind Alexis was called too.Dr Rodriguez notified about the incident and he talked to the cleaning supervisor. RN called the Family at around 2250, Kei her brother clarified that she is full code. Patient get transferred to ICU in rm 205.
[2021-05-03] VITALS (737 sets, daily range): BP systolic 129–158; BP diastolic 66–76; PULSE 46–64; TEMP 92.8–98.2; O2SAT 34–100
--- NOTE | 2021-05-03 01:15 | NUR ---
This RN notified of CAT call at 2238 by medical charge, ZORAN Gordon. Arrived to bedside at 2240; patient being bagged by RT, Jean. Tidwell, hospitalist, at bedside. Diann contacted Dr. Salas. Received orders to administer narcan, calcium chloride, and an amp of bicarb. Received orders to transfer to ICU for intubation. Patient arrived to ICU room 5 at 2308. She was intubated by 2321. Dr. Salas at patient bedside by approximately 2330. Received orders to administer an additional 2 amps of bicarb and 80mg lasix. Dr. Macario consulted to insert central line and HD catheter. HD catheter placed in patient's right neck; triple lumen central line placed to the [facility]. ET, OG, HD catheter, and triple lumen all verified by chest xray.
[2021-05-03 03:22] LABS: ARTERIAL BLD GAS O2 SATURATION 96.4 % (92-100); ARTERIAL BLOOD GAS BASE EXCESS -10.5 (-2-2); ARTERIAL BLOOD GAS HCO3 15.1 meq/L (22-26); ARTERIAL BLOOD GAS PCO2 31.9 mmHg (35-45); ARTERIAL BLOOD GAS PO2 91.2 mmHg (80-100); ARTERIAL BLOOD GAS pH 7.29 (7.35-7.45)
[2021-05-03 05:09] LABS: COLLECTION METHOD CATHETER
[2021-05-03 05:17] LABS: MEAN CELL VOLUME 84 fl (80.0-100.0); MEAN CORPUSCULAR HGB CONC 32 g/dl (33.0-37.0); MEAN PLATELET VOLUME 9.4 fl (7.4-10.4); RED BLOOD COUNT 2.37 M/mm3 (4.10-5.30); REDCELL DISTRIBUTION WIDTH-CV 17.4 % (11.5-14.5)
[2021-05-03 05:19] LABS: MUCOUS Present /lpf; PH 6 (5-8); SQUAMOUS EPITHELIAL 0-2 /hpf; URINE APPEARANCE Clear; URINE BACTERIA None Seen /hpf; URINE BILIRUBIN Negative (NEGATIVE); URINE BLOOD 2+ (NEGATIVE); URINE COLOR Straw; URINE GLUCOSE 2+ (NEGATIVE); URINE KETONE Trace (NEGATIVE); URINE LEUKOCYTE ESTERASE Negative (NEGATIVE); URINE NITRATE Negative (NEGATIVE); URINE PROTEIN(semi-quant) 2+ (NEGATIVE); URINE RBC 20-50 /hpf; URINE UROBILINOGEN Negative (NEGATIVE)
[2021-05-03 05:25] LABS: ALBUMIN 2.1 gm/dL (3.5-5.0); BILIRUBIN,TOTAL 0.1 mg/dL (0.0-1.0); CALCIUM 7.9 mg/dL (8.4-10.2); POTASSIUM 5.7 mmol/L (3.4-5.0); TOTAL PROTEIN 4.4 gm/dL (6.4-8.2)
[2021-05-03 05:26] LABS: ARTERIAL BLD GAS O2 SATURATION 99.7 % (92-100); ARTERIAL BLD GAS TCO2 CT 15.8; ARTERIAL BLOOD GAS BASE EXCESS -9.3 (-2-2); ARTERIAL BLOOD GAS PCO2 26.5 mmHg (35-45); ARTERIAL BLOOD GAS pH 7.37 (7.35-7.45)
[2021-05-03 05:27] LABS: ARTERIAL BLOOD GAS PO2 280.1 mmHg (80-100)
[2021-05-03 05:28] LABS: HEMATOCRIT 19.8 % (37.0-47.0); HEMOGLOBIN 6.3 g/dl (12.5-16.0); MEAN CORPUSCULAR HEMOGLOBIN 27 pg (27.0-31.0); PLATELET COUNT 162 K/mm3 (130-400)
[2021-05-03 05:38] LABS: TROPONIN-I 0.042 ng/mL (0.000-0.035)
[2021-05-03 05:42] LABS: CREATININE, serum 6.55 (0.52-1.25)
--- NOTE | 2021-05-03 06:05 | NUR ---
Unable to obtain temperature axillary, orally, temporally, or rectally. Epstein catheter exchanged for temp epstein. Obtained temperature of 33.2 C or 91.8 F. Diann, hospitalist, notified. Arslan santamaria applied.
[2021-05-03 06:15] LABS: ANISOCYTOSIS 1+; BAND 9 % (0-10); HYPOCHROMIA 1+; LYMPHOCYTE 2 % (20.0-51.0); METAMYELOCYTE 1 % (0-0); NEUTROPHILS 88 % (42.0-75.2); PLATELET ESTIMATE NORMAL (NORMAL); SCHISTOCYTES 2+; TARGET CELLS 1+
--- NOTE | 2021-05-03 07:00 | NUR ---
PT INTUBATED AND SEDATED. PT'S VSS EXCEPT HYPOTHERMIC. PT ON BEARHUGGER AND MILLER TEMP IN PLACE. WILL CONTINUE TO MONTIOR.
--- NOTE | 2021-05-03 10:24 | NUR ---
Pt is currently on vent and recieving dialysis treatment. No family is present. Family had reported that they wanted her to be a full code when they contacted them last night. I will be available for this patient as needed.
--- NOTE | 2021-05-03 10:45 | NUR ---
PATIENT TOLERATED HER 1ST HD TX WITH NO FLUID REMOVAL TODAY. NEXT PLANNED HD TX ON Saturday05/04/2021 @ 0800.
--- NOTE | 2021-05-03 17:00 | NUR ---
pt sedation off. pt only responds to painful stimuli. head ct done today, neuro consulted, and mri ordered. pt's pupils very sluggish. will continue to monitor.
--- NOTE | 2021-05-03 20:00 | NUR ---
Patient assessed around 1999. Patient on ventilator, see assessement for settings/placement. No outward s/sx of pain or discomfort noted. Oral care provided. OG tube on low intermittent suction, with green discharge. LS coarse throughout. HR-regular, bradycardia. Capillary refill less than 3 seconds. Non-tenting skin turgor. BSAx4. Abdomen soft. Indwelling epstein catheter patent, draining clear yellow urine via dependent drainage. Generalized edema all over, evident in arms, trunk, abdomen, and thighs. Bed bath given. Redressed dressings to BLE. Patient repositioned in bed from side to side. Lotion/moisture barrier applied.
[2021-05-03 23:36] LABS: HEPATITIS B SURFACE ANTIBODY <2.0 (()); HEPATITIS B SURFACE ANTIGEN Negative (Negative); HEPATITIS C VIRUS ANTIBODY Negative (Negative)
[2021-05-04] VITALS (619 sets, daily range): BP systolic 112–182; BP diastolic 59–85; PULSE 46–55; TEMP 96.9–98.5; O2SAT 86–100
--- NOTE | 2021-05-04 05:33 | NUR ---
Sedation vacation not performed.
[2021-05-04 05:44] LABS: MEAN CELL VOLUME 82 fl (80.0-100.0); MEAN CORPUSCULAR HGB CONC 34 g/dl (33.0-37.0); MEAN PLATELET VOLUME 10.2 fl (7.4-10.4); PLATELET COUNT 193 K/mm3 (130-400); RED BLOOD COUNT 2.66 M/mm3 (4.10-5.30); REDCELL DISTRIBUTION WIDTH-CV 17.4 % (11.5-14.5)
[2021-05-04 05:52] LABS: HEMATOCRIT 21.7 % (37.0-47.0); HEMOGLOBIN 7.4 g/dl (12.5-16.0); MEAN CORPUSCULAR HEMOGLOBIN 28 pg (27.0-31.0)
[2021-05-04 05:54] LABS: ALBUMIN 2.1 gm/dL (3.5-5.0); BILIRUBIN,TOTAL 0.3 mg/dL (0.0-1.0); CALCIUM 7.6 mg/dL (8.4-10.2); CREATININE, serum 5.35 (0.52-1.25); POTASSIUM 4.9 mmol/L (3.4-5.0); TOTAL PROTEIN 4.2 gm/dL (6.4-8.2)
[2021-05-04 05:59] LABS: ANISOCYTOSIS 1+; HYPOCHROMIA 2+; LYMPHOCYTE 5 % (20.0-51.0); NEUTROPHILS 87 % (42.0-75.2); PLATELET ESTIMATE NORMAL (NORMAL); TARGET CELLS 1+
--- NOTE | 2021-05-04 06:40 | NUR ---
Patient continues on Propofol drip and Fentanyl drip. No changes made to drip rates this shift. No changs in vent settings this shift. Oral care provided. Repositioned in bed. Indwelling epstein catheter continues to drain clear yellow urine.
--- NOTE | 2021-05-04 07:00 | NUR ---
PT IS INTUBATED AND SEDATED. PT ON PROPOFOL AND FENT. PT'S VSS. HR IN THE 50'S. WILL CONTINUE TO MONITOR.
[2021-05-04 09:05] LABS: ARTERIAL BLD GAS O2 SATURATION 98.9 % (92-100); ARTERIAL BLD GAS TCO2 CT 19.9; ARTERIAL BLOOD GAS BASE EXCESS -2.9 (-2-2); ARTERIAL BLOOD GAS HCO3 19.1 meq/L (22-26); ARTERIAL BLOOD GAS pH 7.52 (7.35-7.45)
[2021-05-04 09:06] LABS: ARTERIAL BLOOD GAS PCO2 23.8 mmHg (35-45); ARTERIAL BLOOD GAS PO2 181.6 mmHg (80-100)
--- NOTE | 2021-05-04 09:24 | NUR ---
SPOKE WITH ULTRASOUND. WILL PLAN FOR RIGHT THORACENTESIS TOMORROW AT 1130.
--- NOTE | 2021-05-04 11:08 | NUR ---
Pt having a possible blood transfusion reaction. Pt has rash to BLE. VSS. Blood stopped, blood bank notified, and bedside. Labs drawn. Blood returned to blood bank. Will continue to montior closely.
--- NOTE | 2021-05-04 11:26 | NUR ---
PATIENT TOLERATED HER 2ND HD TX WITH 1.42L OF FLUID REMOVED TODAY. 1055 DR. GHOTRA IN TO ASSESS THE PATIENT & BLE FOR EDEMA NOTED RASH. 1056 PRBCS DC'D & RETURNED TO THE BLOOD BANK. PATIENT'S VSS. BLOTCHY RED RASH NOTED ON BLE THEN ABD. ICU NURS TODD NOTIFIED APPROPRIATE STAFF & ADMINISTERED BENADRYL IVP.
--- NOTE | 2021-05-04 15:55 | NUR ---
PT SATS DROPPING TO 88% AND HR 43. PT BOOSTED AND REPOSITIONED. SEDATION STOPPED. RT CALLED. OXYGEN INCREASED TO 100%. AND PULSE OX CHANGED. PT NOW UP TO 100% AND HR MID 50'S. WILL CONTINUE TO MONTIOR.
--- NOTE | 2021-05-04 17:00 | NUR ---
ALL SEDATION IS OFF. PT MOVING ARMS. PT UNABLE TO ANSWER YES/NO QUESTIONS. PT DOES NOT FOLLOW COMMANDS. WILL LEAVE SEDATION OFF LONG PT TOLERATES.
--- NOTE | 2021-05-04 20:36 | NUR ---
Patient assessed. On Ventilator. No outward s/sx of pain or discomfort noted at this time. Peripheral INT to right wrist. Triple lumen central line to left IJ. Propofol and Fentanyl running per orders, as well as Zosyn. HD cath to right IJ. Dressings are all CDI. LS coarse throughout. HR-angélica, 40-50s. Held Metoprolol. Capillary refill less than 3 seconds. Non-tenting skin turgor. Tube feeding running per orders. No residual. BS hypoactive x 4. Indwelling epstein cathter with cloudy, place yellow urine. Generalized edema. Bed bath given. Lotion/skin barrier applied. New dressings to BLE. Repositioned in bed. Oral care provided.
--- NOTE | 2021-05-04 20:43 | NUR ---
Spoke with charge nurse regarding HR of 46. Recommended to decrease Fentanyl from 50 mcg/hr to 25 mcg/hr. Charge nurse assisted with decreasing drip rate at 2031.
--- NOTE | 2021-05-04 20:58 | NUR ---
BP 182/85. Recheck 176/76. Given PRN Appresoline at this time.
[2021-05-05] VITALS (670 sets, daily range): BP systolic 119–179; BP diastolic 71–89; PULSE 38–122; TEMP 97.5–98.8; O2SAT 86–100
[2021-05-05 05:12] LABS: BASO % 0.6 % (0.0-2.0); EOS # 0.2 (0.0-0.7); GRAN # 4.2 (1.4-6.5); LYMPH # 0.3 (1.2-3.4); LYMPH % 6.4 % (20.0-51.0); MEAN CELL VOLUME 86 fl (80.0-100.0); MEAN CORPUSCULAR HGB CONC 33 g/dl (33.0-37.0); MEAN PLATELET VOLUME 10.2 fl (7.4-10.4); MONO # 0.5 (0.1-0.6); MONO % 9.1 % (1.7-9.3); PLATELET COUNT 195 K/mm3 (130-400); RED BLOOD COUNT 3.11 M/mm3 (4.10-5.30); REDCELL DISTRIBUTION WIDTH-CV 17.8 % (11.5-14.5)
[2021-05-05 05:16] LABS: ARTERIAL BLD GAS O2 SATURATION 98.9 % (92-100); ARTERIAL BLD GAS TCO2 CT 20.8; ARTERIAL BLOOD GAS PCO2 25.4 mmHg (35-45); ARTERIAL BLOOD GAS pH 7.52 (7.35-7.45)
[2021-05-05 05:18] LABS: HEMATOCRIT 26.8 % (37.0-47.0); HEMOGLOBIN 8.7 g/dl (12.5-16.0); MEAN CORPUSCULAR HEMOGLOBIN 28 pg (27.0-31.0)
[2021-05-05 05:20] LABS: ARTERIAL BLOOD GAS PO2 170.7 mmHg (80-100)
[2021-05-05 05:24] LABS: ALBUMIN 2.2 gm/dL (3.5-5.0); BILIRUBIN,TOTAL 0.3 mg/dL (0.0-1.0); CALCIUM 7.6 mg/dL (8.4-10.2); CREATININE, serum 4.09 (0.52-1.25); MAGNESIUM 1.4 mg/dL (1.6-2.3); POTASSIUM 4.5 mmol/L (3.4-5.0); TOTAL PROTEIN 4.5 gm/dL (6.4-8.2)
--- NOTE | 2021-05-05 06:26 | NUR ---
Patient continues on Fentanyl and Propofol drips. Also receiving Zosyn at this time per orders. Patient continues on ventilator. Has occasionally been moving, especially during cares such as repositioning and oral care. Does not follow directions. Has been tolerating tube feedinds, no residual when checked. Feeding currently running at goal rate of 35 ml/hr, with 30 ml flushes every four hours. Patient's BP has been increasing back to 170s systolic. Given another dose of PRN Appresoline per orders. HR has been staying 40s-50s most of the night, but did drop down into the 30s a few times, but not sustained. Patient has been repositioned in bed about every two hours, turning side to side of offload weight from bottom.
--- NOTE | 2021-05-05 11:35 | NUR ---
Patient tolerated 3rd HD tx with 1.5L fluid removal today. Next planned HD tx on Saturday05/05/2021 @ 0800.
--- NOTE | 2021-05-05 15:15 | NUR ---
LOUD HONKING SOUNDS NOTED FROM PT'S ROOM. RN ENTERS ROOM TO FIND ETT HANGING OUT ON PT'S CHEST. AMBU BAG OBTAINED AND BAGED FOR FIVE MINUTES AND THEN PLACED ON 10L OM, POX 93%. PT DOES NOT FOLLOW ANY COMMANDS. DR BAILON NOTIFIED AND DISCUSSED POC. PROVIDER REQUESTS PT TO BE REINTUBATED AT THIS TIME. RT AND ANESTHESIA NOTIFIED.
--- NOTE | 2021-05-05 15:43 | NUR ---
PT SUCCESSFULLY REINTUBATED BY KODY ABDUL CRNA WITH ETT 7.5 21 AT THE TEETH. COLOR CHANGE NOTED. IV GTT'S RESTARTED BACK AT PREVIOUS SETTINGS. RESTRAINTS REMAIN IN PLACE. CXR ORDERED.
--- NOTE | 2021-05-05 15:48 | NUR ---
14FR OGT PLACED WITH AIR BOLUS VERIFIED. XRAY ORDERED. CLAMPED AT 55 CM. WILL RESTART TF ONCE XRAY IS READ.
--- NOTE | 2021-05-05 15:51 | NUR ---
Intubated patient at 1543 with a 7.5 ET 21@teeth. Yellow color change was seen post intubation, bilateral breath sounds were heard. This is a reintubation as patient had self extubated themselves.
--- NOTE | 2021-05-05 17:00 | NUR ---
While in a Covid isolation room this nurse was notified that this patient had self-extubated at 1515. Nursing staff was in the room bagging patient at this time. Anesthesia paged and patient was re-intubated at 1543. Tolerated well. Post intubation chest xray showed total white out of left lung per Dr. Jesus. 02 currently 96% on 50% FIO2. Will obtain ABG at this time. Dr. Jesus will come in for a thoracentesis this evening.
[2021-05-05 17:57] LABS: ARTERIAL BLD GAS O2 SATURATION 91.6 % (92-100); ARTERIAL BLD GAS TCO2 CT 21.7; ARTERIAL BLOOD GAS BASE EXCESS -2.3 (-2-2); ARTERIAL BLOOD GAS HCO3 20.8 meq/L (22-26); ARTERIAL BLOOD GAS PCO2 30.6 mmHg (35-45); ARTERIAL BLOOD GAS PO2 62.2 mmHg (80-100); ARTERIAL BLOOD GAS pH 7.45 (7.35-7.45)
--- NOTE | 2021-05-05 19:29 | NUR ---
Sedation vacation not performed due to patient self-extubating this afternoon.
[2021-05-05 19:34] LABS: ARTERIAL BLD GAS O2 SATURATION 96.6 % (92-100); ARTERIAL BLD GAS TCO2 CT 24.6; ARTERIAL BLOOD GAS BASE EXCESS 0.3 (-2-2); ARTERIAL BLOOD GAS HCO3 23.6 meq/L (22-26); ARTERIAL BLOOD GAS PCO2 33.1 mmHg (35-45); ARTERIAL BLOOD GAS PO2 86.1 mmHg (80-100); ARTERIAL BLOOD GAS pH 7.47 (7.35-7.45)
--- NOTE | 2021-05-05 20:23 | NUR ---
Patient assessed around 193. On ventilator. Repositioned in bed at shift change to left side. INT to right wrist came out. Continues to have left IJ triple lumen central line, as well as HD catheter to right IJ. LS coarse in right lung queen, and left upper lobe, diminished in left lower lobe. HR-irregular. HR was in the 60s, given scheduled Metoprolol per orders. OG tube with feeding per orders. Tolerating well with no residual. BSAx4. Indwelling epstein catheter draining clear yellow urine via dependent drainage. Minimal urine output. Generalized edema continues. VIKA applied to bottom. Continues on Fentanyl and Propofol drips.
[2021-05-06] VITALS (562 sets, daily range): BP systolic 102–199; BP diastolic 47–106; PULSE 46–83; TEMP 96.4–99; O2SAT 90–100
[2021-05-06 04:39] LABS: ARTERIAL BLD GAS O2 SATURATION 97.4 % (92-100); ARTERIAL BLD GAS TCO2 CT 22.5; ARTERIAL BLOOD GAS BASE EXCESS -1.1 (-2-2); ARTERIAL BLOOD GAS HCO3 21.6 meq/L (22-26); ARTERIAL BLOOD GAS PCO2 28.8 mmHg (35-45); ARTERIAL BLOOD GAS PO2 94.5 mmHg (80-100); ARTERIAL BLOOD GAS pH 7.49 (7.35-7.45)
[2021-05-06 05:22] LABS: BASO % 0.6 % (0.0-2.0); EOS # 0.2 (0.0-0.7); EOS % 4.8 % (0-4.0); GRAN # 3.7 (1.4-6.5); GRAN % 77.1 % (42.2-75.2); LYMPH # 0.3 (1.2-3.4); LYMPH % 7.1 % (20.0-51.0); MEAN CELL VOLUME 87 fl (80.0-100.0); MEAN CORPUSCULAR HGB CONC 32 g/dl (33.0-37.0); MEAN PLATELET VOLUME 10.5 fl (7.4-10.4); MONO # 0.5 (0.1-0.6); MONO % 9.8 % (1.7-9.3); PLATELET COUNT 162 K/mm3 (130-400); RED BLOOD COUNT 3.07 M/mm3 (4.10-5.30); REDCELL DISTRIBUTION WIDTH-CV 17.7 % (11.5-14.5)
[2021-05-06 05:23] LABS: HEMATOCRIT 26.8 % (37.0-47.0); HEMOGLOBIN 8.6 g/dl (12.5-16.0); MEAN CORPUSCULAR HEMOGLOBIN 28 pg (27.0-31.0)
[2021-05-06 05:31] LABS: CALCIUM 7.5 mg/dL (8.4-10.2); CREATININE, serum 2.61 (0.52-1.25); MAGNESIUM 1.8 mg/dL (1.6-2.3); POTASSIUM 4.3 mmol/L (3.4-5.0)
--- NOTE | 2021-05-06 05:51 | NUR ---
Patient's HR has been between 40-50 most of this shift, sinus angélica. Temp did go up to 99.0, but decreased back to 98.4 at this time with air conditioner and taking off heavy blankets. Continues on Propofol and Fentanyl drips. Feedings going per dietary recommendations.
--- NOTE | 2021-05-06 10:50 | NUR ---
Patient danyay receiving dialysis. Dr. Jesus requested to obtain a chest CT STAT and will need to interrupt diaysis. Left for CT of the chest at 1026 and returned at 1049. Tolerated well. Resumed dialysis upon return.
--- NOTE | 2021-05-06 13:10 | NUR ---
Patient tolerated her 4th HD tx with 3.4L of fluid removed today. Pending possible HD tx tomorrow, Saturday05/07/21 @ 0830.
--- NOTE | 2021-05-06 13:42 | NUR ---
Dr. Parr here to perform thoracentesis. 900 ml removed from left lung; tolerated well. Sent samples down to lab.
[2021-05-06 14:19] LABS: PLEURAL FLUID RBC 0 /mm3 (0-0); PLEURAL FLUID WBC 199 /mm3
[2021-05-06 14:21] LABS: PLEURAL FLUID APPEARANCE CLEAR; PLEURAL FLUID COLOR YELLOW
--- NOTE | 2021-05-06 20:01 | NUR ---
Patient assessed. Warm blanket put on patient, and air conditioner turned off. No residual from feeding. Continues on Versed and Fentanyl.
--- NOTE | 2021-05-06 22:00 | NUR ---
RECIEVED REPORT FROM JONAH MEEHAN. PT RESTING QUIETLY IN BED. SHORT ASSESSMENT COMPLETED AT THIS TIME. NO CHANGES FROM WHAT WAS REPORTED.
[2021-05-07] VITALS (472 sets, daily range): BP systolic 150–197; BP diastolic 66–88; PULSE 53–75; TEMP 97.9–98.9; O2SAT 87–100
[2021-05-07 05:18] LABS: BASO % 0.2 % (0.0-2.0); EOS # 0.2 (0.0-0.7); EOS % 1.8 % (0-4.0); GRAN # 7.7 (1.4-6.5); GRAN % 86.6 % (42.2-75.2); LYMPH # 0.3 (1.2-3.4); LYMPH % 3.8 % (20.0-51.0); MEAN CELL VOLUME 90 fl (80.0-100.0); MEAN CORPUSCULAR HGB CONC 31 g/dl (33.0-37.0); MONO # 0.6 (0.1-0.6); PLATELET COUNT 147 K/mm3 (130-400); RED BLOOD COUNT 3.05 M/mm3 (4.10-5.30); REDCELL DISTRIBUTION WIDTH-CV 17.7 % (11.5-14.5)
[2021-05-07 05:23] LABS: HEMATOCRIT 27.4 % (37.0-47.0); HEMOGLOBIN 8.5 g/dl (12.5-16.0); MEAN CORPUSCULAR HEMOGLOBIN 28 pg (27.0-31.0)
[2021-05-07 05:30] LABS: CALCIUM 7.5 mg/dL (8.4-10.2); CREATININE, serum 1.96 (0.52-1.25)
[2021-05-07 05:39] LABS: MAGNESIUM 1.8 mg/dL (1.6-2.3)
[2021-05-07 06:58] LABS: ARTERIAL BLD GAS O2 SATURATION 98.5 % (92-100); ARTERIAL BLOOD GAS BASE EXCESS 0.8 (-2-2); ARTERIAL BLOOD GAS HCO3 25.7 meq/L (22-26); ARTERIAL BLOOD GAS PCO2 42.7 mmHg (35-45); ARTERIAL BLOOD GAS PO2 120.9 mmHg (80-100)
--- NOTE | 2021-05-07 08:00 | NUR ---
Patient observed moving all limbs and will occasionally lift arms up towards ET tube. However, patient does not open eyes and has not followed any commands. Will continue to monitor.
[2021-05-07 09:30] LABS: IRON,SERUM 19 ug/dL (35-150)
--- NOTE | 2021-05-07 09:30 | NUR ---
Patient noted to have gone into Afib RVR with rates 130'150's and hypertensive. Dr. Salas notified. Will administer metoprolol IV and Digoxin via NG tube. While administering IV metoprolol patient back in SR in the 90's. Will continue to monitor.
[2021-05-07 09:39] LABS: TOTAL IRON BINDING CAPACITY 181 ug/dL (265-497)
--- NOTE | 2021-05-07 10:45 | NUR ---
Dr. Jesus performed a right sided thoracentesis and drained 800ml of pleural fluid. Samples sent to lab. Following the thora Dr. Jesus also performed a bronchoscopy. Tolerated well.
[2021-05-07 11:56] LABS: PLEURAL FLUID APPEARANCE CLEAR; PLEURAL FLUID COLOR COLORLESS
[2021-05-07 11:57] LABS: PLEURAL FLUID RBC 0 /mm3 (0-0); PLEURAL FLUID WBC 365 /mm3
[2021-05-07 12:09] LABS: GLUCOSE,PLEURAL FLUID 108 mg/dL
[2021-05-07 12:10] LABS: TOTAL PROTEIN,PLEURAL FLUID < 2.0 gm/dL
--- NOTE | 2021-05-07 15:00 | NUR ---
Patient noted to be hypertensive during dialysis. Discussed possibly administering prn Hydralazine with supervisor offset plate preparation, Gilma. However, Gilma stated she would like to see if dialysis is effective in lowering BP to avoid possibly causing BP to drop too much with dialysis and antihypertensive together. Gilma notified Dr. Salas of elevated BP readings. Will continue to monitor.
--- NOTE | 2021-05-07 15:54 | NUR ---
Patient tolerated her 5th HD tx today with 3.5L of fluid removed. Next planned HD tx on Saturday05/09/21 @ 0800.
[2021-05-07 16:05] LABS: BODY FLUID PH (AMS) 8 (())
--- NOTE | 2021-05-07 18:30 | NUR ---
Dr. Salas notified about elevated BP. Continues to be elevated despite completing dialysis and being administered Hydralazine by kashmir RN. Will initiate vasotec; see EMAR.
--- NOTE | 2021-05-07 18:37 | NUR ---
Sedation vacation not performed due to patient moving extremities and pulling at restraints.
--- NOTE | 2021-05-07 20:00 | NUR ---
Assessment complete and charted. Patient remains sedation on ventilator. Repositioned. Does not follow commands.
[2021-05-08] VITALS (643 sets, daily range): BP systolic 143–183; BP diastolic 74–101; PULSE 60–104; TEMP 97.5–97.8; O2SAT 68–100
[2021-05-08 04:12] LABS: ARTERIAL BLD GAS O2 SATURATION 98.1 % (92-100); ARTERIAL BLD GAS TCO2 CT 25.9; ARTERIAL BLOOD GAS BASE EXCESS -1.3 (-2-2); ARTERIAL BLOOD GAS HCO3 24.5 meq/L (22-26); ARTERIAL BLOOD GAS PCO2 45.7 mmHg (35-45); ARTERIAL BLOOD GAS PO2 101.5 mmHg (80-100); ARTERIAL BLOOD GAS pH 7.35 (7.35-7.45)
[2021-05-08 05:23] LABS: BASO # 0.1 (0.0-0.2); BASO % 0.4 % (0.0-2.0); EOS # 0.2 (0.0-0.7); EOS % 1.9 % (0-4.0); GRAN # 10.2 (1.4-6.5); GRAN % 87.9 % (42.2-75.2); LYMPH # 0.5 (1.2-3.4); LYMPH % 4.4 % (20.0-51.0); MEAN CELL VOLUME 92 fl (80.0-100.0); MEAN CORPUSCULAR HGB CONC 30 g/dl (33.0-37.0); MEAN PLATELET VOLUME 10.6 fl (7.4-10.4); MONO # 0.6 (0.1-0.6); MONO % 4.9 % (1.7-9.3); PLATELET COUNT 135 K/mm3 (130-400); RED BLOOD COUNT 3.17 M/mm3 (4.10-5.30); REDCELL DISTRIBUTION WIDTH-CV 18.2 % (11.5-14.5)
[2021-05-08 05:24] LABS: HEMATOCRIT 29.3 % (37.0-47.0); HEMOGLOBIN 8.8 g/dl (12.5-16.0); MEAN CORPUSCULAR HEMOGLOBIN 28 pg (27.0-31.0)
[2021-05-08 05:31] LABS: MAGNESIUM 1.9 mg/dL (1.6-2.3); PHOSPHOROUS 3.3 mg/dL (2.5-4.5)
[2021-05-08 05:39] LABS: PRE ALBUMIN 13.5 mg/dL (17.6-36.0)
[2021-05-08 05:52] LABS: ALBUMIN 2.2 gm/dL (3.5-5.0); BILIRUBIN,TOTAL 0.2 mg/dL (0.0-1.0); CALCIUM 7.6 mg/dL (8.4-10.2); CREATININE, serum 1.89 (0.52-1.25); POTASSIUM 3.7 mmol/L (3.4-5.0); TOTAL PROTEIN 4.7 gm/dL (6.4-8.2)
--- NOTE | 2021-05-08 06:39 | NUR ---
Patient had uneventful night. Occasional pulling against restraints-sedation was increased. Patient repositioned Q2H.
--- NOTE | 2021-05-08 07:31 | NUR ---
Report given to ZORAN Pederson
--- NOTE | 2021-05-08 10:30 | NUR ---
Discussed plan of care with hospitalist. Pupils are equal with very minimal reaction. Patient will move extremities but does not respond purposefully and will not follow commands. Sedation decreased at this time. Will continue to monitor.
--- NOTE | 2021-05-08 10:40 | NUR ---
Patient had a right sided thoracentesis done by Dr. Jesus. 800 ml were collected and samples sent to lab. Dr. Jesus also performed a bronchcoscopy following the thoracentesis. Tolerated well by patient.
--- NOTE | 2021-05-08 11:06 | NUR ---
Patient having liquid stools; received ok from Dr. Pierre to place rectal tube to protect skin integrity.
--- NOTE | 2021-05-08 11:21 | NUR ---
Updated Dr. Logan on patient status; no new orders received at this time.
--- NOTE | 2021-05-08 13:30 | NUR ---
Brother at bedside; all questions and concerns addressed at this time.
--- NOTE | 2021-05-08 19:59 | NUR ---
Assessment complete and charted. Awakens to stimuli, does not follow commands. Easily falls back asleep on vent.
[2021-05-08 22:33] LABS: COLLECTION METHOD CATHETER
[2021-05-08 22:49] LABS: BUDDING YEAST Present /hpf; PH 6 (5-8); SQUAMOUS EPITHELIAL None Seen /hpf; URINE APPEARANCE Hazy; URINE BACTERIA Rare /hpf; URINE BILIRUBIN Negative (NEGATIVE); URINE BLOOD Negative (NEGATIVE); URINE COLOR Yellow; URINE GLUCOSE Negative (NEGATIVE); URINE KETONE Negative (NEGATIVE); URINE LEUKOCYTE ESTERASE Negative (NEGATIVE); URINE NITRATE Negative (NEGATIVE); URINE PROTEIN(semi-quant) 3+ (NEGATIVE); URINE UROBILINOGEN Negative (NEGATIVE)
[2021-05-09] VITALS (834 sets, daily range): BP systolic 170–222; BP diastolic 76–104; PULSE 66–104; TEMP 97.3–99.3; O2SAT 96–100
[2021-05-09 05:14] LABS: ARTERIAL BLD GAS TCO2 CT 25.4; ARTERIAL BLOOD GAS BASE EXCESS -0.9 (-2-2); ARTERIAL BLOOD GAS HCO3 24.1 meq/L (22-26); ARTERIAL BLOOD GAS PCO2 41.4 mmHg (35-45); ARTERIAL BLOOD GAS PO2 106.1 mmHg (80-100); ARTERIAL BLOOD GAS pH 7.38 (7.35-7.45)
[2021-05-09 05:24] LABS: BASO # 0.1 (0.0-0.2); BASO % 0.5 % (0.0-2.0); EOS # 0.2 (0.0-0.7); GRAN # 8.8 (1.4-6.5); GRAN % 86.7 % (42.2-75.2); LYMPH # 0.5 (1.2-3.4); LYMPH % 4.7 % (20.0-51.0); MEAN CELL VOLUME 91 fl (80.0-100.0); MEAN CORPUSCULAR HGB CONC 30 g/dl (33.0-37.0); MONO # 0.5 (0.1-0.6); MONO % 5.3 % (1.7-9.3); PLATELET COUNT 143 K/mm3 (130-400); RED BLOOD COUNT 3.25 M/mm3 (4.10-5.30); REDCELL DISTRIBUTION WIDTH-CV 18.5 % (11.5-14.5)
[2021-05-09 05:26] LABS: HEMATOCRIT 29.7 % (37.0-47.0); MEAN CORPUSCULAR HEMOGLOBIN 28 pg (27.0-31.0)
[2021-05-09 05:34] LABS: CREATININE, serum 2.51 (0.52-1.25)
--- NOTE | 2021-05-09 06:37 | NUR ---
Patient sedation increased this AM. Patient attempting to move out of bed and reach for ET tube. Sedation vacation not complete. Does not follow commands. Respositioned Q2HR
--- NOTE | 2021-05-09 10:11 | NUR ---
Sedation on hold since Dr. Jesus saw patient around 0800. She continues to be unresponsive and does not wake. Hemodialysis in progress. Will continue to monitor.
--- NOTE | 2021-05-09 11:46 | NUR ---
PATIENT TOLERATED HER 6TH HD TX WITH 4L FLUID REMOVAL TODAY. NEXT PLANNED HD TX PENDING LABS.
--- NOTE | 2021-05-09 16:13 | NUR ---
Case Management continues to follow and will assist with family meeting as desired by physician.
--- NOTE | 2021-05-09 18:00 | NUR ---
DR GHOTRA AT BEDSIDE AT THIS TIME. DISCUSSION ABOUT CARE AND PATIENTS LACK OF PURPOSEFUL RESPONSE AFTER NO SEDATION SINCE THE AM. PHONE CALL MADE TO JANNIE - BROTHER. DISCUSSION WAS HAD THAT THE PATIENT CONTINUES TO NOT RESPOND MEANINGFULLY TO STIMULI, HAS BEEN OFF SEDATION SINCE THIS AM WITH NO CHANGE IN MENTATION. GOALS OF CARE DISCUSSION WILL NEED TO TAKE PLACE TOMORROW IN PERSON. JANNIE AGREED TO COME TO THE HOSPITAL AROUND [address] GHOTRA AND THE CARE TEAM TO DISCUSS GOALS OF CARE AND EXPECTATIONS.
--- NOTE | 2021-05-09 19:40 | NUR ---
Patient anil Lizette called requesting update. Had security code. Provided update. Explained family meeting in AM with Kei for potential comfort care. Comfort care explained to anil. Informed Lizette per Dr. Salas nothing further we can do at this time. Patient off sedation throughout day and not responding.
--- NOTE | 2021-05-09 20:10 | NUR ---
Assessment complete and charted. Patient minimally responsive. No purposeful movements. Off sedation.
--- NOTE | 2021-05-09 20:59 | NUR ---
PATIENT HAS HAD NO SEDATION MEDICATION SINCE 0800 THIS MORNING; PATIENT NOT RESPONDING TO VERBAL COMMANDS
[2021-05-10] VITALS (758 sets, daily range): BP systolic 145–178; BP diastolic 73–103; PULSE 71–118; TEMP 98.6–101.5; O2SAT 92–100
[2021-05-10 06:15] LABS: BASO % 0.5 % (0.0-2.0); EOS # 0.1 (0.0-0.7); EOS % 1.1 % (0-4.0); GRAN # 7.1 (1.4-6.5); GRAN % 86.3 % (42.2-75.2); LYMPH # 0.4 (1.2-3.4); LYMPH % 5.4 % (20.0-51.0); MEAN CELL VOLUME 92 fl (80.0-100.0); MEAN CORPUSCULAR HGB CONC 30 g/dl (33.0-37.0); MEAN PLATELET VOLUME 10.6 fl (7.4-10.4); MONO # 0.5 (0.1-0.6); MONO % 6.1 % (1.7-9.3); PLATELET COUNT 163 K/mm3 (130-400); RED BLOOD COUNT 3.03 M/mm3 (4.10-5.30); REDCELL DISTRIBUTION WIDTH-CV 18.6 % (11.5-14.5)
[2021-05-10 06:20] LABS: HEMATOCRIT 27.9 % (37.0-47.0); HEMOGLOBIN 8.4 g/dl (12.5-16.0); MEAN CORPUSCULAR HEMOGLOBIN 28 pg (27.0-31.0)
[2021-05-10 06:21] LABS: CALCIUM 8.2 mg/dL (8.4-10.2); CREATININE, serum 1.88 (0.52-1.25); POTASSIUM 3.7 mmol/L (3.4-5.0)
--- NOTE | 2021-05-10 06:41 | NUR ---
Patient remained off sedation throughout night. Received x2 versed pushes for restlessness. x1 episode of Afib RVR 130s. Was given 2.5mg of IV lopressor. Resting in bed this AM on vent.
--- NOTE | 2021-05-10 07:27 | NUR ---
Report given to ZORAN Degroot
--- NOTE | 2021-05-10 09:40 | NUR ---
Called [facility] regarding potential withdraw of care late this morning. [facility] referral # [id number].
--- NOTE | 2021-05-10 18:37 | NUR ---
PATIENT HAS NOT BEEN ON SEDATION SINCE 79905/09/2021
--- NOTE | 2021-05-10 19:07 | NUR ---
REPORTED OFF TO HONG MEEHAN
--- NOTE | 2021-05-10 19:55 | NUR ---
Assessment complete and charted. Patient remains on vent. Unresponsive to stimuli at this time.
[2021-05-11] VITALS (602 sets, daily range): BP systolic 150–180; BP diastolic 70–86; PULSE 63–94; TEMP 96.7–99.6; O2SAT 86–100
[2021-05-11 05:04] LABS: ARTERIAL BLD GAS O2 SATURATION 99.1 % (92-100); ARTERIAL BLD GAS TCO2 CT 24.1; ARTERIAL BLOOD GAS BASE EXCESS -0.1 (-2-2); ARTERIAL BLOOD GAS HCO3 23.1 meq/L (22-26); ARTERIAL BLOOD GAS PCO2 31.7 mmHg (35-45); ARTERIAL BLOOD GAS pH 7.48 (7.35-7.45)
--- NOTE | 2021-05-11 05:57 | NUR ---
Patient given versed push x2 during night for restlessness. Patient opened eyes x1. Patient not following commands. Respiratory attempted spontaneous breathing trial this AM-patient did not breathe on her own. Resting in bed this AM. Appears to be comfortable.
--- NOTE | 2021-05-11 07:00 | NUR ---
Report given to ZORAN Pederson
--- NOTE | 2021-05-11 07:45 | NUR ---
Patient moving all extremities; observed lifting arms up towards ET tube. Ensured wrist restraints were appropriately tied. Attempted to re-oreient and calm patient. Opened her eyes to her name but not following any commands. Patient off all sedation as she has not been appropriate mentally and attempting to see if her mentation improves when off all sedation and IV pain meds. Will continue to monitor.
[2021-05-11 08:11] LABS: BASO % 0.5 % (0.0-2.0); EOS # 0.1 (0.0-0.7); EOS % 1.3 % (0-4.0); GRAN # 6.1 (1.4-6.5); GRAN % 81.8 % (42.2-75.2); LYMPH # 0.5 (1.2-3.4); LYMPH % 7.2 % (20.0-51.0); MEAN CELL VOLUME 92 fl (80.0-100.0); MEAN CORPUSCULAR HGB CONC 30 g/dl (33.0-37.0); MEAN PLATELET VOLUME 10.2 fl (7.4-10.4); MONO # 0.7 (0.1-0.6); MONO % 8.8 % (1.7-9.3); PLATELET COUNT 168 K/mm3 (130-400); RED BLOOD COUNT 2.87 M/mm3 (4.10-5.30); REDCELL DISTRIBUTION WIDTH-CV 18.7 % (11.5-14.5)
[2021-05-11 08:16] LABS: ALBUMIN 2.3 gm/dL (3.5-5.0); BILIRUBIN,TOTAL 0.3 mg/dL (0.0-1.0); CREATININE, serum 2.75 (0.52-1.25); POTASSIUM 3.7 mmol/L (3.4-5.0); TOTAL PROTEIN 4.9 gm/dL (6.4-8.2)
[2021-05-11 08:19] LABS: HEMATOCRIT 26.5 % (37.0-47.0); MEAN CORPUSCULAR HEMOGLOBIN 28 pg (27.0-31.0)
--- NOTE | 2021-05-11 10:30 | NUR ---
Patient restless; pulling at restraints and bringing hands close to ET tube despite being restrained. Discussed with Dr. Jesus and ok to re-start propofol drip.
[2021-05-11 17:46] LABS: COLLECTION METHOD CATHETER
--- NOTE | 2021-05-11 17:49 | NUR ---
Sedation vacation not performed due to patient observed intermittently pulling at restraints and raising arms up towards ET tube.
[2021-05-11 18:14] LABS: BUDDING YEAST Present /hpf; PH 7 (5-8); SQUAMOUS EPITHELIAL 0-2 /hpf; URINE APPEARANCE Cloudy; URINE BACTERIA Rare /hpf; URINE BILIRUBIN Negative (NEGATIVE); URINE BLOOD 1+ (NEGATIVE); URINE COLOR Yellow; URINE GLUCOSE Negative (NEGATIVE); URINE KETONE Negative (NEGATIVE); URINE LEUKOCYTE ESTERASE 2+ (NEGATIVE); URINE NITRATE Negative (NEGATIVE); URINE PROTEIN(semi-quant) 3+ (NEGATIVE); URINE RBC 20-50 /hpf; URINE UROBILINOGEN Negative (NEGATIVE); URINE WBC >50 /hpf
[2021-05-11 18:57] LABS: CLOSTRIDIUM DIFF A/B NEG; CLOSTRIDIUM DIFF A/B INTERP No C.diff present
--- NOTE | 2021-05-11 19:15 | NUR ---
Received report from ZORAN Pederson.
[2021-05-11 19:24] LABS: ARTERIAL BLD GAS O2 SATURATION 98.3 % (92-100); ARTERIAL BLD GAS TCO2 CT 25.6; ARTERIAL BLOOD GAS BASE EXCESS -0.3 (-2-2); ARTERIAL BLOOD GAS HCO3 24.4 meq/L (22-26); ARTERIAL BLOOD GAS PCO2 39.7 mmHg (35-45); ARTERIAL BLOOD GAS PO2 106.9 mmHg (80-100); ARTERIAL BLOOD GAS pH 7.41 (7.35-7.45)
--- NOTE | 2021-05-11 19:45 | NUR ---
Patient's resting quietly in bed. Remains on ventilator; tolerating well. BP elevated at 160/78, all other vitals within normal limits. Anti-hypertensives scheduled with evening meds. Patient's linens exchanged and she is repositioned with help of ZORAN Pederson. Patient's eyes unresponsive to speech or painful stimuli, however, pupillary reflexes equal and intact. Withdraws from pain, but moves BLE in bed frequently. Bed in lowest position, all alarms on. No further needs noted.
--- NOTE | 2021-05-11 19:53 | NUR ---
WBC elevated and budding yeast present in UA. Ewa notified. Patient already on zosyn and on diflucan for yeast in previous sputum. No changes made to treatment at this time.
[2021-05-12] VITALS (313 sets, daily range): BP systolic 141–156; BP diastolic 68–78; PULSE 49–65; TEMP 97.4–98; O2SAT 59–100
[2021-05-12 04:42] LABS: BASO % 0.6 % (0.0-2.0); EOS # 0.5 (0.0-0.7); EOS % 10.2 % (0-4.0); GRAN # 3.6 (1.4-6.5); GRAN % 70.6 % (42.2-75.2); LYMPH # 0.4 (1.2-3.4); LYMPH % 7.6 % (20.0-51.0); MEAN CELL VOLUME 92 fl (80.0-100.0); MEAN CORPUSCULAR HGB CONC 30 g/dl (33.0-37.0); MEAN PLATELET VOLUME 9.2 fl (7.4-10.4); MONO # 0.5 (0.1-0.6); MONO % 10.4 % (1.7-9.3); PLATELET COUNT 161 K/mm3 (130-400); RED BLOOD COUNT 2.87 M/mm3 (4.10-5.30); REDCELL DISTRIBUTION WIDTH-CV 18.7 % (11.5-14.5)
[2021-05-12 04:55] LABS: ARTERIAL BLD GAS O2 SATURATION 96.6 % (92-100); ARTERIAL BLD GAS TCO2 CT 24.4; ARTERIAL BLOOD GAS BASE EXCESS -1.3 (-2-2); ARTERIAL BLOOD GAS HCO3 23.2 meq/L (22-26); ARTERIAL BLOOD GAS PCO2 38.1 mmHg (35-45); ARTERIAL BLOOD GAS PO2 78.6 mmHg (80-100)
[2021-05-12 04:58] LABS: CALCIUM 7.6 mg/dL (8.4-10.2); CREATININE, serum 3.36 (0.52-1.25); POTASSIUM 3.6 mmol/L (3.4-5.0)
[2021-05-12 05:15] LABS: HEMATOCRIT 26.4 % (37.0-47.0); MEAN CORPUSCULAR HEMOGLOBIN 28 pg (27.0-31.0)
--- NOTE | 2021-05-12 12:18 | NUR ---
pt was extubated paliatively.
--- NOTE | 2021-05-12 12:19 | NUR ---
Pt has been extubated. Family is at bedside. Comfort quilt provided. Family denies need for ski technician.
--- NOTE | 2021-05-12 13:15 | NUR ---
[facility] updated referral number [id number], may not release home yet. Family has chosen [facility] in [place].
--- NOTE | 2021-05-12 14:11 | NUR ---
1115 DR GHOTRA MET WITH FAMILY AND THE DECISION WAS MADE TO GO TO COMFORT CARE 1145 ORDERS PUT IN FOR COMFORT CARE 1202 PATIENT EXTUBATED WITH RT, FAMILY, AND 2 RN'S BEDSIDE 1215 UPON AUSCULTATION HEART AND LUNG SOUNDS ABSENT; 2 RN'S CONFIRM TIME OF ; DR GHOTRA AND DRUG AND ALCOHOL TREATMENT SPECIALIST NOTIFIED
--- NOTE | 2021-05-12 23:40 | NUR ---
[facility] in [place] picked up patient at this time.
== END 2021-05-12 23:40 | disposition expired | DRG 682 ==
LOC: ICU 19:20 → MEDICAL 22:51 → ICU 22:51 → MEDICAL 23:00 → ICU 05-02 23:45
PROVIDERS: Internal Medicine; Internal Medicine Pulmonary Disease; Student in an Organized Health Care Education/Training Program; ADMIT Internal Medicine Nephrology
PROC: 0BH17EZ Insertion of Endotracheal Airway into Trachea, Via Natural or Artificial Opening (ICD-10-PCS; principal; 2021-05-02)
PROC: 5A1955Z Respiratory Ventilation, Greater than 96 Consecutive Hours (ICD-10-PCS; 2021-05-02)
PROC: 02HV33Z Insertion of Infusion Device into Superior Vena Cava, Percutaneous Approach (ICD-10-PCS; 2021-05-03)
PROC: 5A1D70Z Performance of Urinary Filtration, Intermittent, Less than 6 Hours Per Day (ICD-10-PCS; 2021-05-03)
PROC: 30233N1 Transfusion of Nonautologous Red Blood Cells into Peripheral Vein, Percutaneous Approach (ICD-10-PCS; 2021-05-03)
PROC: 0W993ZZ Drainage of Right Pleural Cavity, Percutaneous Approach (ICD-10-PCS; 2021-05-07)
PROC: 0BCB8ZZ Extirpation of Matter from Left Lower Lobe Bronchus, Via Natural or Artificial Opening Endoscopic (ICD-10-PCS; 2021-05-07)
PROC: 0BC88ZZ Extirpation of Matter from Left Upper Lobe Bronchus, Via Natural or Artificial Opening Endoscopic (ICD-10-PCS; 2021-05-07)
PROC: 0BC68ZZ Extirpation of Matter from Right Lower Lobe Bronchus, Via Natural or Artificial Opening Endoscopic (ICD-10-PCS; 2021-05-07)
DX: N17.9 Acute kidney failure, unspecified (principal); G93.41 Metabolic encephalopathy; J96.01 Acute respiratory failure with hypoxia; J90 Pleural effusion, not elsewhere classified; E87.2 Acidosis; I48.92 Unspecified atrial flutter; E46 Unspecified protein-calorie malnutrition; G93.1 Anoxic brain damage, not elsewhere classified; Z66 Do not resuscitate; Z51.5 Encounter for palliative care; J98.11 Atelectasis; J44.9 Chronic obstructive pulmonary disease, unspecified; L89.159 Pressure ulcer of sacral region, unspecified stage; L89.899 Pressure ulcer of other site, unspecified stage; L89.309 Pressure ulcer of unspecified buttock, unspecified stage; D63.1 Anemia in chronic kidney disease; E83.51 Hypocalcemia; I12.9 Hypertensive chronic kidney disease with stage 1 through stage 4 chronic kidney disease, or unspecified chronic kidney disease; N18.9 Chronic kidney disease, unspecified; I48.91 Unspecified atrial fibrillation; I08.1 Rheumatic disorders of both mitral and tricuspid valves; I16.0 Hypertensive urgency; T80.92XA Unspecified transfusion reaction, initial encounter; T68.XXXA Hypothermia, initial encounter; R00.1 Bradycardia, unspecified; B96.5 Pseudomonas (aeruginosa) (mallei) (pseudomallei) as the cause of diseases classified elsewhere; B95.2 Enterococcus as the cause of diseases classified elsewhere; B96.20 Unspecified Escherichia coli [E. coli] as the cause of diseases classified elsewhere; E87.5 Hyperkalemia; F32.9 Major depressive disorder, single episode, unspecified; F17.210 Nicotine dependence, cigarettes, uncomplicated
CPT/HCPCS: 99232-AI; 99233-AI; A4314; A9585; C9113; J0360; J0692; J0696; J1160; J1170; J1200; J1644; J1650; J1756; J1940; J2060; J2250; J2270; J2310; J2405; J2543; J2704; J3010; J3475; J7030; J7050; P9016; Q5105